=== PATIENT | male | born 1995 | race Caucasian/White ===

== ENCOUNTER 2016-11-14 21:40 | Emergency (ER) | payer BC ==
[2016-11-14 21:53] VITALS: BP 135/90
--- NOTE | 2016-11-14 22:22 | UC ---
Skin Complaint HPI - HPI Summary HPI Summary: 2 WEEKS AGO NOTICED A SMALL LUMP UNDER THE SKIN ON THE LEFT SIDE OF HIS ABDOMEN PROXIMAL TO UMBILICUS. NOT PAINFUL. NO FEVER, NAUSEA OR DRAINAGE. NO SKIN REDNESS. HAS SOME CONSTIPATION PAST SEVERAL DAYS BUT LIKELY UNRELATED. - History of Current Complaint Chief Complaint: [facility]CGI Time Seen by Provider: 11/14/16 22:01 Stated Complaint: SOFT TISSUE COMPLAINT Hx Obtained From: Patient Onset/Duration: Sudden Onset, Lasting Weeks, Still Present Timing: Constant Onset Severity: Mild Current Severity: Mild Pain Intensity: 0 Pain Scale Used: 0-10 Numeric Location: Discrete - LEFT ABDOMEN Aggravating: Nothing Alleviating: Nothing Associated Signs & Symptoms: Positive: Negative - Allergy/Home Medications Allergies/Adverse Reactions: Allergies Allergy/AdvReac Type Severity Reaction Status Date / Time No Known Allergies Allergy Verified 06/02/14 16:02 Review of Systems Constitutional: Negative Skin: Other - LUMP UNDER SKIN LEFT ABDOMEN Respiratory: Negative Cardiovascular: Negative Gastrointestinal: Negative All Other Systems Reviewed And Are Negative: Yes PMH/Surg Hx/FS Hx/Imm Hx Endocrine History Of: Denies: Diabetes, Thyroid Disease Cardiovascular History Of: Denies: Cardiac Disorders, Hypertension Respiratory History Of: Reports: Asthma Denies: COPD GI/ History Of: Denies: Ulcer - Surgical History Surgical History: None - Family History Known Family History: Positive: None - Social History Alcohol Use: Occasionally Substance Use Type: None Smoking Status (MU): Never Smoked Tobacco Physical Exam Triage Information Reviewed: Yes Appearance: Well-Appearing, No Pain Distress, Well-Nourished Vital Signs: Initial Vital Signs Temp 98.7 F 11/14/16 21:46 Pulse 69 11/14/16 21:46 Resp 18 11/14/16 21:46 BP 135/90 11/14/16 21:46 Pulse Ox 99 11/14/16 21:46 Vital Signs Reviewed: Yes Eyes: Positive: Conjunctiva Clear ENT: Positive: Hearing grossly normal Neck: Positive: Supple Respiratory: Positive: No respiratory distress, No accessory muscle use Cardiovascular: Positive: Pulses Normal Abdomen Description: Positive: Soft Musculoskeletal: Positive: No Edema Neurological: Positive: Alert Psychological: Positive: Age Appropriate Behavior Skin: Positive: Other - 2.5CM X 1.5CM WELL CIRCUMSCRIBED SUBCUTANEOUS NON TENDER CYSTIC STRUCTURE LEFT SIDE OF ABDOMEN PROXIMAL TO UMBILICUS. Course/Dx - Diagnoses Provider Diagnoses: SUBCUTANEOUS CYST Discharge - Discharge Plan Condition: Stable Disposition: HOME Patient Education Materials: Cyst (ED) Referrals: Abram Zheng MD [Medical Doctor] - (SCHEDULE AN APPT FOR EVALUATION AT YOUR CONVENIENCE) [facility] TY Martin [Medical Doctor] - If Needed Additional Instructions: THE LUMP ON YOUR ABDOMEN SEEMS TO BE A SUPERFICIAL CYSTIC STRUCTURE. IT IS LIKELY BENIGN AND DOES NOT SEEM TO BE INFECTED. IT MAY NEED TO BE IMAGED AND/OR REMOVED IF IT IS CAUSING YOU DISCOMFORT. CALL SURGERY FOR AN APPT AT YOUR CONVENIENCE.
== END 2016-11-14 22:22 | disposition home or self-care (01) ==
LOC: UCEAST 21:40
DX: L72.8 Other follicular cysts of the skin and subcutaneous tissue (principal); R03.0 Elevated blood-pressure reading, without diagnosis of hypertension
CPT/HCPCS: 99211; G0463